=== PATIENT | male | born 1955 | race Caucasian/White ===

== ENCOUNTER → 2016-11-21 | Outpatient (CLI) | payer OTHER | LOC: MMPC 11:11 | PROVIDERS: ATTEND Internal Medicine | DX: G89.4 Chronic pain syndrome (principal); Z87.39 Personal history of other diseases of the musculoskeletal system and connective tissue; Z12.5 Encounter for screening for malignant neoplasm of prostate | CPT/HCPCS: 99214; G0463 ==

== ENCOUNTER 2017-01-02 04:20 | Inpatient (IN) | payer OTHER ==
[2017-01-02] MEDS ORDERED: ONDANSETRON 4 MG/2 ML VIAL IVP ONE (04:45)
[2017-01-02] MEDS ORDERED: NORMAL SALINE 10 ML SYRINGE FLUSH IVP PRN ×2 (04:45→08:03)
[2017-01-02] MEDS ORDERED: Famotidine Inj 20 MG in Normal Saline Flush 10 ML IVP ONE (04:45)
[2017-01-02] MEDS ORDERED: HYDROmorphone 2 MG/1 ML IVP ONE (04:45)
[2017-01-02 04:52] LABS: BASOPHILS # (AUTO) 0.06 10*3/UL; BASOPHILS % (AUTO) 0.4 % (0-1); EOSINOPHILS % (AUTO) 1.5 % (0-8); HEMATOCRIT 47.5 % (42.0-52.0); HEMOGLOBIN 16.2 g/dL (14.0-18.0); IMM GRAN % (AUTO) 0.3 % (0-5); IMM GRAN# (AUTO) 0.04 10*3/UL; LYMPHOCYTES # (AUTO) 3.01 10*3/uL; LYMPHOCYTES % (AUTO) 22.4 % (10-50); MEAN CORPUSCULAR HEMOGLOBIN 27.8 PG (27-31); MEAN CORPUSCULAR HGB CONC 34.1 g/dL (33-37); MEAN PLATELET VOLUME 10.1 FL (7.4-12.2); MONOCYTES # (AUTO) 1.06 10*3/UL (0.3-0.8); MONOCYTES % (AUTO) 7.9 % (5-15); NEUTROPHILS # (AUTO) 9.04 10*3/UL; NEUTROPHILS % (AUTO) 67.5 % (50-80); RDW COEFFICIENT OF VARIATION 13.2 % (11.5-14.5); RED BLOOD COUNT 5.83 10^6/uL (4.70-6.10); WHITE BLOOD COUNT 13.41 10^3/uL (4.8-10.8)
[2017-01-02 04:53] LABS: PLATELET MORPHOLOGY COMMENT NORMAL MORPHOLOGY (NORM)
[2017-01-02 04:58] LABS: AMYLASE 936 U/L (30-110); ASPARTATE AMINO TRANSFERASE 76 IU/L (21-57); BLOOD UREA NITROGEN 14 mg/dL (7-22); BUN/CREATININE RATIO 12.72 (6-20); CALCIUM 9.1 mg/dL (8.7-10.7); CHLORIDE 105 meq/L (98-112); CREATININE 1.1 mg/dL (0.70-1.50); EST GLOMERULAR FILTRATION > 60 (>60 ml/min/1.73m(2)); GLUCOSE 128 mg/dL (78-110); POTASSIUM 3.8 meq/L (3.8-5.2); SODIUM 144 meq/L (135-145); TOTAL PROTEIN 7.4 g/dL (6.1-8.0)
[2017-01-02] MEDS ORDERED: Sodium Chloride 0.9% 1,000 ML ONE (05:48)
[2017-01-02] MEDS ORDERED: Sodium Chloride 0.9% 1,000 ML PRIMARY IV ONE (05:54)
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
--- NOTE | 2017-01-02 07:04 | DI ---
HISTORY: Abdominal pain. COMPARISON: None available. TECHNIQUE: Multiple grayscale and color Doppler sonographic images were obtained through the abdomen . FINDINGS: Examination demonstrates multiple shadowing stones within the gallbladder. There was no g allbladder wall thickening or pericholecystic fluid. Within the liver, there is an echogenic focus adjacent to the gallbladder measuring approximately 13 mm in diameter. The right kidney measures 10.0 cm in length without hydronephrosis nor nephrolithiasis. The left kidney measures 10.2 cm in length also without hydronephrosis nor nephrolithiasis. The spleen appears within normal limits. The pancreas was not well seen. IMPRESSION: 1. Cholelithiasis. 2. Evidence of a 13 mm hyperechoic lesion within the right lobe of the liver which may represent a he mangioma. Recommend [address] for further evaluation. NOTE: The interpreting Radiologist was not present at the time of ultrasound interrogation.
--- NOTE | 2017-01-02 07:36 | PDOC ---
History and Physical - History of Present Illness History of Present Illness: This very nice 61-year-old gentleman with past medical history of a T5 compression fracture and is disabled on chronic pain medication comes to the ER with acute onset of epigastric abdominal pain that started last night after dinner. He is was found to have an elevated lipase amylase and WBC mild elevation of his LFTs ultrasound revealed cholelithiasis but his bilirubin is within normal limits. Discussed with the surgeon Dr. jere Pinon they would like to for him to be cooled off and possibly do cholecystectomy as an outpatient Past Medical History Medical History: Pyloroplasty with vagotomy and the ventral hernia repair by Dr. Drake Surgical History: As above Tobacco Use: Former Smoker Substance Use Type: None Alcohol Use: None Medication / Allergies Home Medications: Home Medications Medication Instructions Recorded Confirmed Type Sennosides [Senna Lax] 1 tab PO DAILY tab 04/27/14 01/02/17 History Naproxen Sodium [Aleve] 1 cap PO BID cap 05/08/15 01/02/17 History Betamethasone Dipropionate 1 ml TP BID #45 gm 11/10/15 01/02/17 Clinic Gabapentin 1 tab PO BID #60 tab 08/21/16 01/02/17 Clinic Omeprazole 1 cap PO BID #60 capsule 08/21/16 01/02/17 Clinic Hydrocodone/Acetaminophen 1 tab PO 5XD PRN #150 tab 12/30/16 01/02/17 Clinic [Hydrocodon-Acetaminophn 10-325] Allergies/Adverse Reactions: Allergies Allergy/AdvReac Type Severity Reaction Status Date / Time morphine Allergy Severe DIFFICULTY Verified 01/02/17 08:17 SWALLOWING buprenorphine [From Butrans] AdvReac Intermediate HALLUCINATI Verified 01/02/17 08:17 ONS steri-strip adhesive Allergy Severe body welts Uncoded 01/02/17 08:17 Tincture Benzoin Allergy Severe body Uncoded 01/02/17 08:17 welts, throat swelling PAIN CONTRACT AdvReac Unknown NOT Uncoded 01/02/17 08:17 APPLICABLE Review of Systems - Review of Systems All Systems: Reviewed & No Additional Complaints Except as Stated - Respiratory Respiratory: DENIES: Negative System Review, Cough, Sputum, Dyspnea At Rest, Dyspnea with Exertion, Pleuritic Pain, Hemoptysis, Wheezing, Other, See HPI - Cardiovascular Cardiovascular: DENIES: Negative System Review, Chest Pain, Edema, Syncope, Palpitations, Orthopnea, Paroxysmal Nocturnal Dyspnea, Other, See HPI - Gastrointestinal Gastrointestinal / Abdominal: REPORTS: Abdominal Pain - Genitourinary Genitourinary: DENIES: Negative System Review, Pain, Burning, Hematuria, Incontinence, Urgency, Hesitant Stream, Decreased Stream, Nocutria, Discharge, Sexual Dyfunction, Other, See HPI - Neurological Neurologic: DENIES: Negative System Review, Headache, Numbness/Paresthesia, Tremors, Weakness, Seizures, Head Trauma, LOC, Dizziness, Confusion, Memory Loss , Difficulty Walking, Incoordination, Other, See HPI Exam - Vitals Vital Signs: Vital Signs Temperature 97.2 F Temperature Source Temporal Artery Scan Pulse Rate [Telemetry] 67 Respiratory Rate 20 Blood Pressure [Left Arm] 148/83 Pulse Ox 93 Oxygen Delivery Method Room Air Height 5 ft 3 in Weight 81.647 kg - General General Appearance: POSITIVE: No Acute Distress, Cooperative - Head Head Exam: POSITIVE: Normal Inspection, Normocephalic, Atraumatic - Eye Eye Exam: POSITIVE: Normal Appearance, PERRL, EOMI - Respiratory Respiratory Exam: POSITIVE: Clear to Auscultation - Bilaterally, Breathing Non Labored, Normal To Percussion - Cardiovascular Cardiovascular Exam: POSITIVE: RRR, No Murmur, No Clicks - GI/Abdominal GI/Abdominal Exam: POSITIVE: Soft Additional GI/Abdominal Exam Details: Some pain on deep palpation epigastric area - Extremities Extremities Exam: POSITIVE: No Clubbing Present, No Edema Present, No Cyanosis Present - Neurological Neurological Exam: POSITIVE: Alert, Oriented x 3, CN II-XII Intact, No Facial Droop Results - Labs CBC and BMP: 01/02/17 04:40 01/02/17 04:40 Labs - Last 24 Hours: Laboratory Results 01/02/17 Range/Units 04:40 WBC 13.41 H (4.8-10.8) 10^3/uL RBC 5.83 (4.70-6.10) 10^6/uL Hgb 16.2 (14.0-18.0) g/dL Hct 47.5 (42.0-52.0) % MCV 81.5 (80-90) FL MCH 27.8 (27-31) PG MCHC 34.1 (33-37) g/dL RDW Std Deviation 39.0 (39-50) fL RDW Coeff of Aleks 13.2 (11.5-14.5) % Plt Count 322 (140-350) 10*3/uL MPV 10.1 (7.4-12.2) FL Immature Gran % (Auto) 0.3 (0-5) % Neut % (Auto) 67.5 (50-80) % Lymph % (Auto) 22.4 (10-50) % [place] % (Auto) 7.9 (5-15) % Eos % (Auto) 1.5 (0-8) % Baso % (Auto) 0.4 (0-1) % Immature Gran # (Auto) 0.04 10*3/UL Neut # (Auto) 9.04 10*3/UL Lymph # (Auto) 3.01 10*3/uL [place] # (Auto) 1.06 H (0.3-0.8) 10*3/UL Eos # (Auto) 0.20 10*3/UL Baso # (Auto) 0.06 10*3/UL WBC Morphology Comment Normal morphology (NORM) Plt Morphology Comment Normal morphology (NORM) RBC Morph Comment Normal morphology (NORM) Sodium 144 (135-145) meq/L Potassium 3.8 (3.8-5.2) meq/L Chloride 105 (98-112) meq/L Carbon Dioxide 26 (23-33) meq/L Anion Gap 13 (5-20) BUN 14 (7-22) mg/dL Creatinine 1.1 (0.70-1.50) mg/dL Estimated GFR > 60 (>60 ml/min/1.73m(2)) BUN/Creatinine Ratio 12.72 (6-20) Glucose 128 H (78-110) mg/dL Calculated Osmolality 300.0 H (267-292) mOsm/kg Calcium 9.1 (8.7-10.7) mg/dL Total Bilirubin 1.0 (0.3-1.2) mg/dL AST 76 H (21-57) IU/L ALT 63 (21-72) IU/L Alkaline Phosphatase 92 (38-126) IU/L Total Protein 7.4 (6.1-8.0) g/dL Albumin 4.2 (3.5-4.8) g/dL Globulin 3.2 (2.50-4.10) g/dL Albumin/Globulin Ratio 1.30 (1.3-2.0) mg/g Amylase 936 H (30-110) U/L Lipase 07767 H* (23-300) IU/L Assessment and Plan - Patient Problems (1) Pancreatitis, acute Current Visit: Yes Status: Acute Comment: Most likely from gallstones IV fluids MRA of his abdomen, blood cultures, start Unasyn IV and monitor indices (2) Chronic pain Current Visit: Yes Status: Acute Comment: Stop by mouth start IV dye lauded
[2017-01-02] MEDS ORDERED: SODIUM CHLORIDE 0.9% IV SCH ×2 (08:00)
[2017-01-02] MEDS ORDERED: SULBACTAM IV SCH ×2 (08:00)
[2017-01-02] MEDS ORDERED: AMPICILLIN IV SCH ×2 (08:00)
[2017-01-02] MEDS ORDERED: ONDANSETRON 4 MG/2 ML VIAL IVP PRN (08:03)
[2017-01-02] MEDS ORDERED: LIDOCAINE W/ SODIUM BICARB 0.5 ML SYR SUBD PRN (08:03)
--- NOTE | 2017-01-02 08:54 | CONSULT ---
Consult Note - Consult Consult Date: 01/02/17 Reason for Consult: PreOp Consulation : General Surgery Requesting Physician: Dr. Cheung Primary Care Provider: Sang Song MD - History of Present Illness History of Present Illness: This is 61-year-old gentleman who is permanently disabled from a compression fracture. He comes in with acute onset abdominal pain nausea. This started last night after supper. He states he's had a few attacks prior to this. He came in with elevated lipase. White count slightly elevated. Ultrasound shows cholelithiasis. His bilirubin is within normal limits. Patient's had an ulcer surgery. He states that they went in there removed also and did a vagotomy. This is done in 1987 therefore will never be able to get op notes for it. Also patient has a ventral hernia repair with mesh by Dr. Darrell Drake. Review of Systems - Review of Systems -: Patient denies visual hearing problems. Denies any problem of his thyroid. Denies coronary artery disease. Denies emphysema or asthma COPD. He states his 02 boys runs a little bit low. He denies smoking. Patient has some nausea but no vomiting or hematochezia hematemesis. No problems with diarrhea or constipation. Patient has weak urine stream. He has compression fractures from the disabled. Otherwise no orthopedic problems. He has no psychiatric or neurologic problems. No other endocrine problems. Review of systems done and is otherwise unremarkable Past Medical History Surgical History: Patient sounds like he had a pyloroplasty with vagotomy possible antrectomy. [place] hernia repair with mesh Tobacco Use: Former Smoker Substance Use Type: None Medication / Allergies Home Medications: Home Medications Medication Instructions Recorded Confirmed Type Sennosides [Senna Lax] 1 tab PO DAILY tab 04/27/14 01/02/17 History Naproxen Sodium [Aleve] 1 cap PO BID cap 05/08/15 01/02/17 History Betamethasone Dipropionate 1 ml TP BID #45 gm 11/10/15 01/02/17 Clinic Gabapentin 1 tab PO BID #60 tab 08/21/16 01/02/17 Clinic Omeprazole 1 cap PO BID #60 capsule 08/21/16 01/02/17 Clinic Hydrocodone/Acetaminophen 1 tab PO 5XD PRN #150 tab 12/30/16 01/02/17 Clinic [Hydrocodon-Acetaminophn 10-325] Allergies/Adverse Reactions: Allergies Allergy/AdvReac Type Severity Reaction Status Date / Time morphine Allergy Severe DIFFICULTY Verified 01/02/17 08:17 SWALLOWING buprenorphine [From Butrans] AdvReac Intermediate HALLUCINATI Verified 01/02/17 08:17 ONS steri-strip adhesive Allergy Severe body welts Uncoded 01/02/17 08:17 Tincture Benzoin Allergy Severe body Uncoded 01/02/17 08:17 welts, throat swelling PAIN CONTRACT AdvReac Unknown NOT Uncoded 01/02/17 08:17 APPLICABLE Exam - Vitals Vital Signs: Vital Signs Temperature 97.3 F Temperature Source Oral Pulse Rate [Pulse Oximeter] 67 Pulse Rate [Telemetry] 67 Respiratory Rate 16 Blood Pressure [Right Arm] 120/74 Blood Pressure [Left Arm] 148/83 Pulse Ox 90 Oxygen Delivery Method Room Air Height 5 ft 3 in Weight 82.826 kg - General General Appearance: POSITIVE: No Acute Distress, Cooperative - Eye Eye Exam: POSITIVE: PERRL, EOMI - Neck Neck Exam: POSITIVE: Full ROM, No Tenderness - Respiratory Respiratory Exam: POSITIVE: Clear to Auscultation - Bilaterally, Breathing Non Labored - Cardiovascular Cardiovascular Exam: POSITIVE: RRR, No Murmur, No Clicks, No Gallops, No Rubs - GI/Abdominal GI/Abdominal Exam: POSITIVE: Normal Bowel Sounds, Non Distended, Soft, Positive for RUQ Pain, No Hepatomegaly, No Splenomegaly - Rectal Rectal Exam: POSITIVE: Deferred - External Exam: POSITIVE: Deferred - Extremities Extremities Exam: POSITIVE: Full ROM, Normal Capillary Refill, No Clubbing Present, No Edema Present, No Cyanosis Present - Neurological Neurological Exam: POSITIVE: Alert, Oriented x 3, Reflexes Normal, CN II-XII Intact - Psychiatric Psychiatric Exam: POSITIVE: Normal Affect - Integumentary Integumentary Exam: POSITIVE: Normal Color Results - Labs CBC and BMP: 01/02/17 04:40 01/02/17 04:40 Assessment and Plan - Patient Problems (1) Acute gallstone pancreatitis Current Visit: Yes Status: Acute - Assessment / Plan Additional Assessment/Plan Details: Patient easily can treated with conservative management for his pancreatitis. After his pancreatitis has resolved he may be considered for cholecystectomy. he would be at high risk to have to have an open cholecystectomy, to the history of upper abdominal surgery for ulcers and also his mesh placement for his ventral hernia.
[2017-01-02] MEDS: Ampicillin/Sulbactam Inj 3 GM in Sodium Chloride 0.9% 100 ML IV SCH ×3 (09:30→20:18)
[2017-01-02] MEDS: Sodium Chloride 0.9% 1,000 ML PRIMARY IV SCH ×2 (09:30→20:17)
[2017-01-02] MEDS: HEPARIN 5000 UNIT/1 ML SUBCUT SCH ×2 (09:31→16:48)
[2017-01-02] MEDS: HYDROmorphone 2 MG/1 ML IVP PRN ×4 (11:22→23:48)
[2017-01-02] MEDS ORDERED: LIDOCAINE W/ SODIUM BICARB 0.5 ML SYR ONE (11:22)
--- NOTE | 2017-01-02 15:37 | DI ---
MRI CHOLANGIOPANCREATOGRAM, 01/02/2017 9:31 AM: Clinical History: Elevated lipase. Cholelithiasis. Pancreatitis. Previous Exam: None at this facility. Comparison is made with the complete abdominal ultrasound perfo rmed earlier today. MRCP T1 breath hold in phase and out of phase axial images; T2 weighted axial and coronal fat saturat ed breath hold sequences are performed. A T2-weighted MRCP thick slice rotational acquisition was als o performed. The gallbladder is well distended and has multiple hypointensities in the dependent portion of the ga llbladder consistent with the gallstones noted on the recent ultrasound exam performed today. The com mon hepatic duct measures 3 mm and the common bile duct measures 3 mm. There are no common duct stone s seen. The pancreas has a normal signal pattern without evidence of peripancreatic fluid or pancreat ic cysts. The pancreatic duct shows smooth tapering toward the tail without dilatation or evidence of a "[place]" pattern to indicate chronic pancreatitis. Readin. Cholelithiasis. There is no edema of the gallbladder wall and there is no intrahepatic or extrahe patic biliary dilatation. 2. The cholangiopancreatogram is normal.
--- NOTE | 2017-01-02 16:34 | EKG ---
[address] [address] Measurements Intervals [place] Rate: 69 P: 16 VA: 165 QRS: -8 QRSD: 81 T: 42 QT: 382 QTc: 402 Interpretive Statements SINUS RHYTHM No previous ECG available for comparison Electronically Signed On 01-02-17 17:12:54 MST by Omer Zimmerman [email or web address]
[2017-01-03] MEDS: HEPARIN 5000 UNIT/1 ML SUBCUT SCH ×2 (00:32→09:49)
[2017-01-03] MEDS: Ampicillin/Sulbactam Inj 3 GM in Sodium Chloride 0.9% 100 ML IV SCH ×2 (02:32→09:50)
[2017-01-03] MEDS: HYDROmorphone 2 MG/1 ML IVP PRN ×4 (03:50→09:50)
[2017-01-03] MEDS: Sodium Chloride 0.9% 1,000 ML PRIMARY IV SCH ×2 (05:20→10:34)
[2017-01-03 06:22] LABS: BASOPHILS # (AUTO) 0.06 10*3/UL; BASOPHILS % (AUTO) 0.8 % (0-1); EOSINOPHILS % (AUTO) 1.8 % (0-8); HEMOGLOBIN 15.7 g/dL (14.0-18.0); IMM GRAN % (AUTO) 0.3 % (0-5); IMM GRAN# (AUTO) 0.02 10*3/UL; LYMPHOCYTES # (AUTO) 1.91 10*3/uL; LYMPHOCYTES % (AUTO) 24.7 % (10-50); MEAN CORPUSCULAR HEMOGLOBIN 28.4 PG (27-31); MEAN CORPUSCULAR HGB CONC 34.1 g/dL (33-37); MEAN PLATELET VOLUME 9.9 FL (7.4-12.2); MONOCYTES # (AUTO) 0.46 10*3/UL (0.3-0.8); NEUTROPHILS # (AUTO) 5.14 10*3/UL; NEUTROPHILS % (AUTO) 66.4 % (50-80); RDW COEFFICIENT OF VARIATION 13.1 % (11.5-14.5); RED BLOOD COUNT 5.53 10^6/uL (4.70-6.10); WHITE BLOOD COUNT 7.73 10^3/uL (4.8-10.8)
[2017-01-03 06:28] LABS: AMYLASE 102 U/L (30-110); ASPARTATE AMINO TRANSFERASE 39 IU/L (21-57); BILIRUBIN,TOTAL 1.1 mg/dL (0.3-1.2); BLOOD UREA NITROGEN 12 mg/dL (7-22); BUN/CREATININE RATIO 13.33 (6-20); CALCIUM 8.9 mg/dL (8.7-10.7); CHLORIDE 110 meq/L (98-112); CREATININE 0.9 mg/dL (0.70-1.50); EST GLOMERULAR FILTRATION > 60 (>60 ml/min/1.73m(2)); GLUCOSE 96 mg/dL (78-110); PLATELET MORPHOLOGY COMMENT NORMAL MORPHOLOGY (NORM); POTASSIUM 3.7 meq/L (3.8-5.2); SODIUM 141 meq/L (135-145); TOTAL PROTEIN 6.4 g/dL (6.1-8.0)
[2017-01-03 07:35] VITALS: RESP 18; TEMP 97.8
--- NOTE | 2017-01-03 09:28 | PDOC(PROG) ---
Date and Time of Service: 01/03/2017 at 8:00 Interval History: Patient's abdominal pain has resolved. He now this has his back pain Objective : Data - Labs CBC and BMP: 01/03/17 06:00 01/03/17 06:00 Labs - Last 24 Hours: Laboratory Results 01/03/17 Range/Units 06:00 WBC 7.73 (4.8-10.8) 10^3/uL RBC 5.53 (4.70-6.10) 10^6/uL Hgb 15.7 (14.0-18.0) g/dL Hct 46.0 (42.0-52.0) % MCV 83.2 (80-90) FL MCH 28.4 (27-31) PG MCHC 34.1 (33-37) g/dL RDW Std Deviation 39.8 (39-50) fL RDW Coeff of Aleks 13.1 (11.5-14.5) % Plt Count 255 (140-350) 10*3/uL MPV 9.9 (7.4-12.2) FL Immature Gran % (Auto) 0.3 (0-5) % Neut % (Auto) 66.4 (50-80) % Lymph % (Auto) 24.7 (10-50) % [place] % (Auto) 6.0 (5-15) % Eos % (Auto) 1.8 (0-8) % Baso % (Auto) 0.8 (0-1) % Immature Gran # (Auto) 0.02 10*3/UL Neut # (Auto) 5.14 10*3/UL Lymph # (Auto) 1.91 10*3/uL [place] # (Auto) 0.46 (0.3-0.8) 10*3/UL Eos # (Auto) 0.14 10*3/UL Baso # (Auto) 0.06 10*3/UL WBC Morphology Comment Normal morphology (NORM) Plt Morphology Comment Normal morphology (NORM) RBC Morph Comment Normal morphology (NORM) Sodium 141 (135-145) meq/L Potassium 3.7 L (3.8-5.2) meq/L Chloride 110 (98-112) meq/L Carbon Dioxide 22 L (23-33) meq/L Anion Gap 9 (5-20) BUN 12 (7-22) mg/dL Creatinine 0.9 (0.70-1.50) mg/dL Estimated GFR > 60 (>60 ml/min/1.73m(2)) BUN/Creatinine Ratio 13.33 (6-20) Glucose 96 (78-110) mg/dL Calculated Osmolality 291.0 (267-292) mOsm/kg Calcium 8.9 (8.7-10.7) mg/dL Total Bilirubin 1.1 (0.3-1.2) mg/dL AST 39 (21-57) IU/L ALT 70 (21-72) IU/L Alkaline Phosphatase 85 (38-126) IU/L Total Protein 6.4 (6.1-8.0) g/dL Albumin 3.7 (3.5-4.8) g/dL Globulin 2.7 (2.50-4.10) g/dL Albumin/Globulin Ratio 1.30 (1.3-2.0) mg/g Amylase 102 (30-110) U/L Lipase 291 (23-300) IU/L - Vital Signs Vital Signs and I&O: Vital Signs - Last Taken Temperature 97.8 F 01/03/17 07:33 Pulse Rate 64 01/03/17 07:33 Respiratory Rate 18 01/03/17 07:33 Blood Pressure 115/68 01/03/17 07:33 Pulse Ox 94 01/03/17 07:33 Intake and Output (24hr x 4 totals) 01/01/17 01/02/17 01/03/17 01/04/17 05:59 05:59 05:59 05:59 Intake Total 1914 Output Total 1150 150 Balance 764 -150 Objective : Exam - General General Appearance: No Acute Distress - GI/Abdominal GI/Abdominal Exam: Normal Bowel Sounds, Non Tender, Non Distended, Soft Assessment and Plan - Patient Problems (1) Acute gallstone pancreatitis Current Visit: Yes Status: Acute - Assessment / Plan Additional Assessment/Plan Details: Patient's gallstone pancreatitis is resolved. Unfortunately will not be of the do surgery because overscheduled today. I think the best thing to do is scheduled patient surgery as an outpatient. Tentatively we will be doing the surgery on January 13.
--- NOTE | 2017-01-03 10:45 | DCSUMMARY ---
Hospitalization Summary Hospital Course: Final Discharge Diagnosis: Current Visit Problems Problem Status Priority Diagnosed Code Acute gallstone pancreatitis Acute K85.10 Biliary colic Acute K80.50 Chronic pain Acute G89.29 Pancreatitis, acute Acute K85.90 Diagnostic Data, Laboratory Data, and Procedures of Signifigance: Laboratory Results 01/02/17 01/02/17 01/03/17 Range/Units 04:40 04:45 06:00 WBC 13.41 H 7.73 (4.8-10.8) 10^3/uL RBC 5.83 5.53 (4.70-6.10) 10^6/uL Hgb 16.2 15.7 (14.0-18.0) g/dL Hct 47.5 46.0 (42.0-52.0) % MCV 81.5 83.2 (80-90) FL MCH 27.8 28.4 (27-31) PG MCHC 34.1 34.1 (33-37) g/dL RDW Std Deviation 39.0 39.8 (39-50) fL RDW Coeff of Aleks 13.2 13.1 (11.5-14.5) % Plt Count 322 255 (140-350) 10*3/uL MPV 10.1 9.9 (7.4-12.2) FL Immature Gran % (Auto) 0.3 0.3 (0-5) % Neut % (Auto) 67.5 66.4 (50-80) % Lymph % (Auto) 22.4 24.7 (10-50) % [place] % (Auto) 7.9 6.0 (5-15) % Eos % (Auto) 1.5 1.8 (0-8) % Baso % (Auto) 0.4 0.8 (0-1) % Immature Gran # (Auto) 0.04 0.02 10*3/UL Neut # (Auto) 9.04 5.14 10*3/UL Lymph # (Auto) 3.01 1.91 10*3/uL [place] # (Auto) 1.06 H 0.46 (0.3-0.8) 10*3/UL Eos # (Auto) 0.20 0.14 10*3/UL Baso # (Auto) 0.06 0.06 10*3/UL WBC Morphology Comment Normal morphology Normal morphology (NORM) Plt Morphology Comment Normal morphology Normal morphology (NORM) RBC Morph Comment Normal morphology Normal morphology (NORM) Sodium 144 141 (135-145) meq/L Potassium 3.8 3.7 L (3.8-5.2) meq/L Chloride 105 110 (98-112) meq/L Carbon Dioxide 26 22 L (23-33) meq/L Anion Gap 13 9 (5-20) BUN 14 12 (7-22) mg/dL Creatinine 1.1 0.9 (0.70-1.50) mg/dL Estimated GFR > 60 > 60 (>60 ml/min/1.73m(2)) BUN/Creatinine Ratio 12.72 13.33 (6-20) Glucose 128 H 96 (78-110) mg/dL Calculated Osmolality 300.0 H 291.0 (267-292) mOsm/kg Calcium 9.1 8.9 (8.7-10.7) mg/dL Magnesium 2.0 (1.6-2.4) mg/dL Total Bilirubin 1.0 1.1 (0.3-1.2) mg/dL AST 76 H 39 (21-57) IU/L ALT 63 70 (21-72) IU/L Alkaline Phosphatase 92 85 (38-126) IU/L Total Protein 7.4 6.4 (6.1-8.0) g/dL Albumin 4.2 3.7 (3.5-4.8) g/dL Globulin 3.2 2.7 (2.50-4.10) g/dL Albumin/Globulin Ratio 1.30 1.30 (1.3-2.0) mg/g Amylase 936 H 102 (30-110) U/L Lipase 20257 H* 291 (23-300) IU/L History and Physical pertinent to Admission: Course of Hospitalization: This very nice 61-year-old gentleman past medical history significant for chronic back pain yesterday was admitted to the hospital with the acute abdominal epigastric pain MRI of his abdomen revealed no signs of pancreatitis or common bile duct the most likely the patient had gallstone pancreatitis he didn't pass his stone now all lab work is normal abdominal pain is resolved. He had low potassium this was replaced he has eaten this morning and tolerated his food well. I discussed the case with Dr. jere Pinon which she recommended he have a surgery as an outpatient arm around January 13 and the patient could be discharged home no need for antibiotics at this point since there was no sign of acute cholecystitis patient will be discharged in stable and improved condition On the date of discharge, the patient was examined: Gen.: No acute distress, alert, nontoxic Heart: Regular rate and rhythm, no murmurs, clicks, gallops, or rubs Lungs: Clear to auscultation bilaterally, breathing is nonlabored Abdomen/GI: Normal tones on auscultation, soft, nontender, nondistended Musculoskeletal/extremities: No clubbing, cyanosis, or edema Vitals reviewed and are listed below Assessment and Plan: 1. As per discharge assessments above 2. Disposition: Home 3. Condition on discharge, stable and improved. 4. Diet: Low-fat diet 5. Activities: resume normal activities 6. Follow-Up: 1. PCP 2. 7. Medications at the Time of Discharge: Home Medications Medication Instructions Recorded Confirmed Type Sennosides [Senna Lax] 1 tab PO DAILY tab 04/27/14 01/02/17 History Naproxen Sodium [Aleve] 1 cap PO BID cap 05/08/15 01/02/17 History Betamethasone Dipropionate 1 ml TP BID #45 gm 11/10/15 01/02/17 Clinic Gabapentin 1 tab PO BID #60 tab 08/21/16 01/02/17 Clinic Omeprazole 1 cap PO BID #60 capsule 08/21/16 01/02/17 Clinic Hydrocodone/Acetaminophen 1 tab PO 5XD PRN #150 tab 12/30/16 01/02/17 Clinic [Hydrocodon-Acetaminophn 10-325] 8. Time, care, counseling and coordination of care for this discharge is greater than 30 minutes. Exam - Vitals Vital Signs: Vital Signs Temperature 97.8 F Temperature Source Temporal Artery Scan Pulse Rate [Pulse Oximeter] 64 Pulse Rate [Telemetry] 67 Respiratory Rate 18 Blood Pressure [Right Arm] 115/68 Blood Pressure [Left Arm] 148/83 Pulse Ox 94 Oxygen Flow Rate 1 Oxygen Delivery Method Room Air Height 5 ft 3 in Weight 80.921 kg Patient Problems - Patient Problem List (1) Pancreatitis, acute Current Visit: Yes Status: Acute (2) Chronic pain Current Visit: Yes Status: Acute
[2017-01-03] MEDS ORDERED: POTASSIUM CHLORIDE 20 MEQ TAB PO ONE (10:58)
== END 2017-01-03 11:14 | disposition home or self-care (01) | DRG 440 ==
LOC: ER 04:20 → MED/SURG 07:24 → UNDOADMIN 07:24
PROVIDERS: ADMIT Internal Medicine; ATTEND Internal Medicine
DX: K85.10 Biliary acute pancreatitis without necrosis or infection (principal); K85.90 Acute pancreatitis without necrosis or infection, unspecified; K80.50 Calculus of bile duct without cholangitis or cholecystitis without obstruction
CPT/HCPCS: 36415; 74181; 76700; 80053; 82150; 83690; 83735; 85025; 87040; 93005; 93010; 94761; 96361; 96374; 96375; 99285; J0295; J1170; J1644; J2405; J7030; J7050

== ENCOUNTER 2017-01-13 06:54 | Day surgery (SDC) | payer OTHER ==
[2017-01-13] MEDS ORDERED: Lactated Ringers 1,000 ML PRIMARY IV ONE ×2 (06:58→08:37)
[2017-01-13] MEDS ORDERED: Sodium Chloride 0.9% 100 ML IV ONE (06:58)
[2017-01-13] MEDS ORDERED: LIDOCAINE W/ SODIUM BICARB 0.5 ML SYR ONE (06:58)
[2017-01-13] MEDS ORDERED: AMPICILLIN/SULBACTAM 3 GM VIAL IV ONE (06:58)
[2017-01-13] MEDS ORDERED: ROCURONIUM 10 MG/1 ML - 5 ML VIAL IVP ONE ×2 (07:04→08:14)
[2017-01-13] MEDS ORDERED: MIDAZOLAM 5 MG/1 ML ONE (07:05)
[2017-01-13] MEDS ORDERED: fentaNYL Inj 250 MCG/5 ML VIAL ONE (07:05)
[2017-01-13] MEDS ORDERED: LIDOCAINE MPF 2% - 5 ML (20 MG/1 ML) ONE (07:05)
[2017-01-13] MEDS ORDERED: BUPIVACAINE 0.25% W/ EPI - 10 ML VIAL ONE ×3 (07:12→08:47)
[2017-01-13] MEDS ORDERED: Bacteriostatic NaCl Inj 30ml Vial ONE (07:13)
[2017-01-13] MEDS ORDERED: Iothalamate Meglumine 30 ML VIAL IV ONE (07:13)
[2017-01-13] MEDS ORDERED: KETOROLAC 30 MG/1 ML VIAL ONE (08:04)
[2017-01-13] MEDS ORDERED: KETAMINE 100 MG/1 ML - 5 ML ONE (08:04)
[2017-01-13] MEDS ORDERED: HYDROmorphone 2 MG/1 ML ONE (08:04)
[2017-01-13] MEDS ORDERED: ONDANSETRON 4 MG/2 ML VIAL ONE (08:04)
[2017-01-13 08:30] VITALS: RESP 17
[2017-01-13] MEDS ORDERED: SUGAMMADEX SODIUM 200 MG/2 ML VIAL IV ONE (08:37)
[2017-01-13] MEDS ORDERED: BUPivacaine Inj 0.25% PF - 10ml vial ONE (08:45)
--- NOTE | 2017-01-13 09:11 | GEN.OPNOTE ---
Operative Note Surgery Date: 01/13/17 Preoperative Diagnosis: Cholelithiasis with history of gallstone pancreatitis Postoperative Diagnosis: Cholelithiasis with history of gallstone pancreatitis Procedure: Laparoscopic cholecystectomy with intraoperative cholangiogram Surgeon: Kleber Frost MD Carpentry Teacher: Darrell Drake MD Anesthesia Provider: Osmani Conner CRNA Anesthesia Type: General Estimated Blood Loss (mL): 5 Fluids: 3 g a Unasyn given preoperative antibiotics. LR please see anesthesia notes in EMR Pathology: Gallbladder sent to pathology Indications: Patient had a bout of gallstone pancreatitis and has cholelithiasis Findings: Gallstones. Intraoperative cholangiogram was within normal limits. Complications: None Operative Summary: Patient was brought in the operating room. Placed in supine position. Given general anesthetic. Was prepped draped sterile fashion. Timeout performed per protocols Quarter percent Marcaine was infiltrated at all trocar sites. Small incision made below the umbilicus. Veress needle inserted pneumoperitoneum obtained. After adequate pneumoperitoneum a 10 mm trocar was placed using the Visiport. Under direct laparoscopic visualization a 10 mm trocar subxiphoid and 2 -5 mm in the midclavicular and midaxillary line. Appropriate instrument were placed. Gallbladder grasped at the fundus retracted over the liver edge. Gallbladder was grasped at Leena's pouch. The cystic duct was dissected free. The cystic duct was clipped near the gallbladder. Intraoperative cholangiocatheter was placed through an angiocatheter. I then opened up the cystic duct with scissors. Intraoperative cardiogram catheter was placed. C- arm was brought in an intraoperative cholangiogram was then done with the aid of the C-arm. There is no evidence of obstruction of the common bile duct and proper anatomy was identified. The C-arm was removed. The cholangiogram was then removed. The cystic duct was doubly clipped and divided. Likewise the cystic artery was dissected free 3 hemoclips placed and divided. The gallbladder was dissected off liver's edge using electrocautery. The gallbladder was then removed through a subumbilical incision. The abdominal cavity was irrigated until clear. The trochars were removed. The umbilicus incision was closed with 0 Vicryl suture to the fascia. The skin was reapproximated using 4-0 Vicryl simple sutures. The remainder trocar sites were 5 mm defects we will close. The remainder skin incisions closed with 4-0 Vicryl. Steri-Strips applied sterile dressings applied. Patient transferred to recovery room in stable condition. Counts were correct
[2017-01-13] MEDS ORDERED: oxyCODONE IR Tab 5 MG TAB PO ONE ×2 (09:36→10:00)
[2017-01-13] MEDS ORDERED: Acetaminophen 1000mg Inj 100 ML IV ONE (09:37)
[2017-01-13] MEDS ORDERED: ONDANSETRON 4 MG/2 ML VIAL IVP PRN (09:54)
[2017-01-13] MEDS ORDERED: oxyCODONE IR Tab 5 MG TAB PO PRN (09:54)
[2017-01-13] MEDS ORDERED: MORPHINE SULFATE 2 MG/1 ML IVP PRN (09:54)
[2017-01-13] MEDS ORDERED: KETOROLAC 30 MG/1 ML VIAL IVP PRN (09:54)
[2017-01-13] MEDS ORDERED: NORMAL SALINE 10 ML SYRINGE FLUSH IVP PRN ×2 (09:54→11:26)
[2017-01-13] MEDS ORDERED: Lactated Ringers 1,000 ML PRIMARY IV SCH ×2 (10:00→11:30)
[2017-01-13] MEDS ORDERED: fentaNYL Inj 100 MCG/2 ML VIAL IVP PRN (11:26)
[2017-01-13] MEDS ORDERED: HYDROmorphone 2 MG/1 ML IVP PRN (11:26)
[2017-01-13] MEDS ORDERED: Acetaminophen 1000mg Inj 1,000 MG in Premix 1 BAG IV ONE (11:27)
--- NOTE | 2017-01-13 11:44 | DI ---
XR CHOLANGIOGRAM INTRAOP,01/13/2017 8:00 AM: Clinical History: Gallstones. Previous Exam: None at this facility. Findings: Multiple views of the right upper quadrant are obtained following an intraoperative cholangiogram, an d demonstrate normal-appearing bile ducts. The right and left hepatic ducts are unremarkable. The common bile duct is normal. There are no filling defects identified. There is contrast noted within the duodenum. Surgical clips are seen in the region of the cystic duct. Impression: Normal intraoperative cholangiogram.
[2017-01-13 15:26] VITALS: TEMP 97.7
== END 2017-01-13 11:00 | disposition home or self-care (01) ==
LOC: SDSC 06:54
PROVIDERS: ATTEND Surgery
DX: K80.80 Other cholelithiasis without obstruction (principal); K85.10 Biliary acute pancreatitis without necrosis or infection
CPT/HCPCS: 47563 ×2; 74300; J0131; J1885; J2704; J3010; Q9961; A4216; J0295; J1170; J2001; J2250; J2405; J7050; J7120

== ENCOUNTER → 2017-01-21 | Outpatient (CLI) | payer OTHER | LOC: MMPC 11:11 | PROVIDERS: ATTEND Surgery | DX: Z90.49 Acquired absence of other specified parts of digestive tract (principal) ==

== ENCOUNTER → 2017-02-18 | Outpatient (CLI) | payer OTHER ==
[2017-02-18 11:02] LABS: BASOPHILS # (AUTO) 0.11 10*3/UL; BASOPHILS % (AUTO) 1.2 % (0-1); EOSINOPHILS # (AUTO) 0.34 10*3/UL; EOSINOPHILS % (AUTO) 3.7 % (0-8); HEMATOCRIT 43.7 % (42.0-52.0); LYMPHOCYTES # (AUTO) 2.89 10*3/uL; MEAN CORPUSCULAR HEMOGLOBIN 27.8 PG (27-31); MEAN CORPUSCULAR HGB CONC 34.3 g/dL (33-37); MEAN CORPUSCULAR VOLUME 80.9 FL (80-90); MEAN PLATELET VOLUME 9.4 FL (7.4-12.2); MONOCYTES # (AUTO) 0.57 10*3/UL (0.3-0.8); MONOCYTES % (AUTO) 6.2 % (5-15); NEUTROPHILS # (AUTO) 5.23 10*3/UL; NEUTROPHILS % (AUTO) 57.1 % (50-80)
[2017-02-18 11:03] LABS: PLATELET MORPHOLOGY COMMENT NORMAL MORPHOLOGY (NORM); RBC MORPHOLOGY COMMENT NORMAL MORPHOLOGY (NORM); WBC MORPHOLOGY COMMENT NORMAL MORPHOLOGY (NORM)
[2017-02-18 11:26] LABS: BLOOD UREA NITROGEN 12 mg/dL (7-22); CHOL/HDL RATIO 6.59 RATIO (0-4.0); EST GLOMERULAR FILTRATION > 60 (>60 ml/min/1.73m(2)); HDL CHOLESTEROL 27 mg/dL (40-150); SERUM ALBUMIN 3.9 g/dL (3.5-4.8); SERUM CHOLESTEROL 178 mg/dL (120-200)
== END ==
LOC: LAB 10:45
PROVIDERS: ATTEND Internal Medicine
DX: G89.4 Chronic pain syndrome (principal); E78.5 Hyperlipidemia, unspecified; Z87.81 Personal history of (healed) traumatic fracture; Z12.5 Encounter for screening for malignant neoplasm of prostate
CPT/HCPCS: 36415; 80053; 80061; 84443; 85025; G0103

== ENCOUNTER → 2017-02-19 | Outpatient (CLI) | payer OTHER | LOC: MMPC 11:11 | PROVIDERS: ATTEND Internal Medicine | DX: E78.2 Mixed hyperlipidemia (principal); Z87.39 Personal history of other diseases of the musculoskeletal system and connective tissue; G89.4 Chronic pain syndrome; Z90.49 Acquired absence of other specified parts of digestive tract | CPT/HCPCS: 99214; G0463 ==

== ENCOUNTER → 2017-05-21 | Outpatient (CLI) | payer OTHER ==
[2017-05-21 10:41] LABS: BLOOD UREA NITROGEN 14 mg/dL (7-22); BUN/CREATININE RATIO 15.55 (6-20); CALCIUM 8.8 mg/dL (8.7-10.7); EST GLOMERULAR FILTRATION > 60 (>60 ml/min/1.73m(2)); HDL CHOLESTEROL 30 mg/dL (40-150); SERUM ALBUMIN 3.9 g/dL (3.5-4.8); SERUM CHOLESTEROL 120 mg/dL (120-200)
== END ==
LOC: LAB 10:08
PROVIDERS: ATTEND Internal Medicine
DX: E78.5 Hyperlipidemia, unspecified (principal); G89.4 Chronic pain syndrome; R25.2 Cramp and spasm; M72.2 Plantar fascial fibromatosis; Z90.49 Acquired absence of other specified parts of digestive tract; Z02.89 Encounter for other administrative examinations; Z87.81 Personal history of (healed) traumatic fracture
CPT/HCPCS: 36415; 80053; 80061; 82550; 99214; G0463